=== PATIENT | female | born 1960 | race Caucasian/White ===

== ENCOUNTER 2016-06-07 08:35 | Emergency (ER) | payer OTHER ==
[~2016-06-07] VITALS: Ht 160 cm; Wt 54.5 kg
[2016-06-07 09:00] VITALS: BP 129/78
== END 2016-06-07 09:32 | disposition home or self-care (01) ==
LOC: EMS 08:38
DX: H10.33 Unspecified acute conjunctivitis, bilateral (principal); Z88.2 Allergy status to sulfonamides
CPT/HCPCS: 99281; 99283